=== PATIENT | female | born 1955 | race Caucasian/White ===

== ENCOUNTER 2016-06-12 08:47 | Emergency (ER) | payer BC ==
[~2016-06-12] VITALS: Ht 167.6 cm; Wt 81.6 kg
--- NOTE | 2016-06-12 08:47 | NUR ---
Patient to ER bed 1 to gown for evaluation. Side rails up. Report given to JOSE GUADALUPE Guerrero.
--- NOTE | 2016-06-12 08:55 | NUR ---
# 20 gauge angiocath placed to rfa. Use of asceptic technique. Opsite placed over site. Blood return noted. Blood for lab drawn from site. Flushed with 10 cc of normal saline. No evidence of infiltration noted. Patient tolerated well.
--- NOTE | 2016-06-12 08:55 | NUR ---
PT. 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
[2016-06-12 08:58] VITALS: BP 131/49; PULSE 70; RESP 19; TEMP 97.5; O2SAT 98
--- NOTE | 2016-06-12 09:00 | NUR ---
lab at bedside drawing blood
--- NOTE | 2016-06-12 09:04 | NUR ---
X Ray at bedside
[2016-06-12 09:27] LABS: BASOPHILS % (AUTO) 0.6 % (0.0-2.0); EOSINOPHILS # (AUTO) 0.2 K/uL (0.0-0.4); EOSINOPHILS % (AUTO) 4.2 % (0.0-4.0); HEMATOCRIT 42.4 % (36-48); HEMOGLOBIN 14.6 g/dL (12.0-16.0); LYMPHOCYTES # (AUTO) 1.4 K/uL (1.0-5.5); LYMPHOCYTES % (AUTO) 27.2 % (20.5-51.5); MEAN CORPUSCULAR HEMOGLOBIN 29 pg (27-31); MEAN CORPUSCULAR HGB CONC 34 % (32-36); MEAN CORPUSCULAR VOLUME 85 fL (79.0-98.0); MONOCYTES # (AUTO) 0.4 K/uL (0.0-1.0); MONOCYTES % (AUTO) 7.7 % (1.7-9.3); NEUTROPHILS % (AUTO) 60.3 % (40.0-70.0); PLATELET COUNT (AUTO) 300 K/uL (130-430); RED CELL DISTRIBUTION WIDTH 12.3 % (9.0-15.0)
--- NOTE | 2016-06-12 09:30 | NUR ---
Urine sent to the lab for UA
[2016-06-12 09:31] LABS: INR 0.9 (0.8-1.2); PROTHROMBIN TIME 9.9 SECS (9.5-12.5)
[2016-06-12 09:35] LABS: ANION GAP 8 (5-15); CALCIUM 9.4 mg/dL (8.4-11.0); CHLORIDE 104 mmol/L (98-107); GLUCOSE 114 mg/dL (70-99); POTASSIUM 4.2 mmol/L (3.5-5.1); SODIUM SERUM 139 mmol/L (136-145); UREA NITROGEN, BLOOD 14 mg/dL (8-21)
--- NOTE | 2016-06-12 09:35 | NUR ---
pt. out to CT via wheelchair
[2016-06-12 09:44] LABS: BILIRUBIN,URINE NEGATIVE (NEGATIVE); BLOOD, URINE 1+ (NEGATIVE); CLARITY/URINE CLEAR (CLEAR); COLOR,URINE YELLOW (YELLOW); GLUCOSE,URINE NEGATIVE (NEGATIVE); KETONES,URINE TRACE (NEGATIVE); LEUKOCYTE ESTERASE ,URINE NEGATIVE (NEGATIVE); NITRITE, URINE NEGATIVE (NEGATIVE); PH,URINE 5.5 (5.0-8.0); PROTEIN URINE NEGATIVE (NEGATIVE); UROBILINOGEN,URINE 0.2 (0.2-1.0)
[2016-06-12 09:47] LABS: GFR AFRICAN AMERICAN 82 mL/min (>90)
[2016-06-12 09:51] LABS: ALANINE AMINOTRANSFERASE 45 U/L (12-78); ALBUMIN 3.8 g/dL (3.4-4.8); ASPARTATE AMINOTRANSFERASE 23 U/L (10-37); FREE T4 (FREE THYROXINE) 0.7 ng/dL (0.6-1.6); TOTAL BILIRUBIN 0.4 mg/dL (0.0-1.0); TOTAL PROTEIN, SERUM 7.6 g/dL (6.4-8.3)
[2016-06-12 09:55] LABS: ALCOHOL, BLOOD < 3 mg/dL (<10)
[2016-06-12 09:56] LABS: BARBITURATE, URINE NEGATIVE (NEG <=200); BENZODIAZEPINE, URINE NEGATIVE (NEG <=150); CANNABINOID, URINE POSITIVE (NEG <=50); COCAINE, URINE NEGATIVE (NEG <=150); METHAMPHETAMINES SCREEN,URINE NEGATIVE (NEG <=500); OPIATE, URINE NEGATIVE (NEG <=100); PHENCYCLIDINE SCREEN,URINE NEGATIVE (NEG <=25); UR TRICYCLIC ANTIDEPRESSANTS NEGATIVE (NEG <=300); URINE AMPHETAMINE NEGATIVE (NEG <=500); URINE METHADONE NEGATIVE (NEG <=200); URINE OXYCODONE SCREEN NEGATIVE (NEG <=100); URINE PROPOXYPHENE SCREEN NEGATIVE (NEG <=300)
[2016-06-12 10:04] LABS: BACTERIA,URINE FEW /HPF (None Seen); MUCUS,URINE 1+ /LPF (None Seen); RBC,URINE 0-3 /HPF (0-3); WBC,URINE 0-3 /HPF (0-3)
--- NOTE | 2016-06-12 10:08 | NUR ---
pt. in bed resting, lights off upon request, states no complaints, at bedside
[2016-06-12 10:50] VITALS: BP 128/78; PULSE 77; RESP 16; TEMP 98.4; O2SAT 99
--- NOTE | 2016-06-12 10:50 | NUR ---
Patient given written and verbal discharge instructions and verbalizes understanding. ER MD dr. tejeda discussed with patient the results and treatment provided. Patient in stable condition. ID arm band removed. Rx of meclizine hcl given. Patient educated on pain management and to follow up with PMD. Pain Scale 0/10 Opportunity for questions provided and answered.
== END 2016-06-12 10:50 | disposition home or self-care (01) ==
LOC: SED 08:47
DX: R42 Dizziness and giddiness (principal); Z88.0 Allergy status to penicillin
CPT/HCPCS: 36415; 70450; 71010; 74000; 80053; 80307; 81000; 82140; 83605; 83880; 84439; 84484; 85025; 85610; 87040; 93005; 99285; G0482